=== PATIENT | male | born 1980 | race Caucasian/White ===

== ENCOUNTER 2017-10-04 12:11 | Emergency (ER) | payer OTHER ==
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
[2017-10-04 13:58] VITALS: BP 120/77
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
== END 2017-10-04 13:57 | disposition home or self-care (01) ==
LOC: ED 12:11
DX: M79.89 Other specified soft tissue disorders (principal); S29.019A Strain of muscle and tendon of unspecified wall of thorax, initial encounter; S39.012A Strain of muscle, fascia and tendon of lower back, initial encounter; Z04.1 Encounter for examination and observation following transport accident; Y92.9 Unspecified place or not applicable
CPT/HCPCS: 72128; 72131; 74176

== ENCOUNTER 2018-07-22 16:55 | Emergency (ER) | payer OTHER ==
[2018-07-22] MEDS ORDERED: 0.9 % SODIUM CHLORIDE 1,000 ML IV ONE (17:19)
[2018-07-22] MEDS ORDERED: ONDANSETRON HCL/PF 4 MG/ 2ML VIAL IVP ONE (17:19)
[2018-07-22] MEDS ORDERED: cefTRIAXone SODIUM 1 GM INJ IM ONE (17:48)
[2018-07-22] MEDS ORDERED: Lidocaine 1% 5ml 10 MG/ML VIAL IVP ONE ×2 (17:48→18:00)
[2018-07-22 17:51] VITALS: BP 127/92
--- NOTE | 2018-07-22 17:56 | ED Physician Documentation ---
Abscess - HISTORIAN Historian: patient - HPI Stated Complaint: neck lesion Chief Complaint: Abscess Additional Information: Patient presents to ED with abscess on back of neck. He states it started a couple of days ago. Yesterday he squeezed it but very little came out. Today the area is very swollen, red and painful. Onset: days ago (2) Timing: worse Duration: persistent since Location: neck (back of neck) Quality: painful Where: home Context: Medication Exposure: none Context: Food Exposure: none - ROS CONST: none CVS/RESP: none EYES/ENT: none GI/: none MS/SKIN/LYMPH: none NEURO/PSYCH: headache - PAST HX Past History: none Other History: none Allergies/Adverse Reactions: Allergies Allergy/AdvReac Type Severity Reaction Status Date / Time No Known Allergies Allergy Verified 10/04/17 12:34 Home Medications: Ambulatory Orders Medication Instructions Recorded Aripiprazole [Abilify] 15 mg PO DAILY 06/08/13 Metformin HCl [Glucophage] 1,000 mg PO BID 06/08/13 Paroxetine HCl [Paxil] 60 mg PO DAILY 06/08/13 traZODone HCL [Desyrel] 50 mg PO TID 02/10/15 - SOCIAL HX Smoking History: cigarettes, greater than 1 pack/day Alcohol Use: none Drug Use: none - FAMILY HX Family History: none - VITAL SIGNS Vital Signs: Vital Signs Temp Pulse Resp BP Pulse Ox 86 15 127/92 98 07/22/18 17:00 07/22/18 17:00 07/22/18 17:00 07/22/18 17:00 - REVIEWED ASSESSMENTS Nursing Assessment Reviewed: Yes Vitals Reviewed: Yes Procedures Site: posterior neck Blade Size: 11 I & D Procedure: Chlorhexidine ED Results Lab/Radiology - Orders Orders: ED Orders Category Date Time Status WOUND CULTURE Stat Lab 07/22/18 17:53 Ordered 0.9 % Sodium Chloride [Normal Saline] 1,000 ml Med 07/22/18 17:19 Discontinued IV Q1H Lidocaine 1% 5ml(IM or SUTURE) [Xylocaine] Med 07/22/18 17:48 Discontinued 10 mg IVP NOW ONE Ondansetron HCl/Pf [Zofran] Med 07/22/18 17:19 Discontinued 4 mg IVP NOW ONE cefTRIAXone SODIUM [Rocephin] Med 07/22/18 17:48 Discontinued 1 gm IM NOW ONE Abscess Physical Exam - EXAM General Appearance: no acute distress, alert Skin: tender indurated area (4 x 4 cm round) Location: posterior neck Character: symmetric, erythematous Symptoms: warmth, tenderness, swelling, induration Extremities: non-tender, nml ROM EENT: eyes nml inspection Neck: No: stiff neck, lymphadenopathy Respiratory: no resp distress, chest non-tender, breath sounds normal CVS: reg. rate & rhythm, heart sounds nml Abdomen: non-tender Neuro/Psych: oriented x3 Discharge Clincal Impression: Abscess Referrals: May Tomas PRN [Primary Care Provider] - 2 Days Condition: Stable Disposition: 01 HOME, SELF-CARE Decision to Admit: NO Date of Decison to Admit: 07/22/18 Decision Time: 17:59
== END 2018-07-22 18:10 | disposition home or self-care (01) ==
LOC: ED 16:55
DX: L02.11 Cutaneous abscess of neck (principal); B95.61 Methicillin susceptible Staphylococcus aureus infection as the cause of diseases classified elsewhere; Z16.39 Resistance to other specified antimicrobial drug
CPT/HCPCS: 10060; 96372; 99283; 99284; J0696; 87070